=== PATIENT | female | born 1975 | race Caucasian/White ===

== ENCOUNTER 2020-09-18 14:36 | Outpatient (CLI) | payer OTHER, SELFPAY ==
--- NOTE | ~2020-09-18 | DEXA_ITS ---
Bone Density Report Name: Tawana Alvarenga Age: 45 Sex: Female Ethnicity: White Date of : 1975 Indication: postmenopausal; Referring Provider: Bess Pope Study: Bone densitometry was performed. Exam Date: September 18, 2020 Accession number: [id number] Bone Density: Region BMD T-score Z-score Classification AP Spine (L1-L4) 0.774 -2.5 -2.0 Osteoporosis Femoral Neck (Left) 0.826 -0.2 0.3 Normal Total Hip (Left) 0.881 -0.5 -0.2 Normal Total Hip Bilateral Avg 0.911 -0.3 0.1 Normal Femoral Neck (Right) 0.773 -0.7 -0.2 Normal Total Hip (Right) 0.940 0.0 0.3 Normal World Health Organization criteria for BMD impression classify patients as: Normal (T-score at or above -1.0), Osteopenia (T-score between -1.0 and -2.5), or Osteoporosis (T-score at or below -2.5). 10-year Fracture Risk: FRAX not reported because: Some T-score for Spine Total or Hip Total or Femoral Neck at or below -2.5 Clinical Information Provided by Patient: Patient maximum height was 67 Menopause Age: 39 No regular weight bearing exercise Drinks caffeinated beverages Onset of menses at age 11 Number of children 2 Impression: The patient has osteoporosis, based on the Total Spine T-score. Discussion: HIGH RISK OF FRACTURE. BONE DENSITY IS UNDESIRABLY LOW AT ONE OR MORE SKELETAL SITES, CONSISTENT WITH OSTEOPOROSIS. ALSO, BONE DENSITY IS LOWER THAN EXPECTED FOR AGE AND SEX AT ONE OR MORE SKELETAL SITES; RECOMMEND A DILIGENT SEARCH FOR SECONDARY CAUSES OF BONE LOSS. This patient's lowest T-score meets the World Health Organization's (WHO) criteria for osteoporosis at one or more sites (T-score -2.5 or below). In untreated patients, the risk of osteoporotic fracture increases approximately two-fold for each 1.0 SD decrease in T-score. Low bone density is not the only risk factor for fracture; also consider factors such as patient's age, frailty or poor health, risk of falling, risk of injury, previous osteoporotic fracture, family history of osteoporosis, cigarette smoking, low body weight, etc. Not everyone with low bone mineral density has osteoporosis; osteomalacia and other metabolic bone disorders should also be considered. Patients who have osteoporosis should be evaluated for specific diseases and conditions (secondary causes) that may cause or contribute to bone loss. The [place] Association of Clinical Endocrinologists (AACE) and National Osteoporosis Foundation (NOF) recommend pharmacologic intervention for all postmenopausal women whose T-score is in this range. Also, this patient's bone mineral density is below the range considered normal for healthy age-, sex-, and race-matched controls at least one site (Z-score -2.0 or below). This warrants careful evaluation for diseases and conditions that may contribute to accelerated bone
--- NOTE | ~2020-09-18 | MM_ITS ---
EXAMINATION: MM screening [place] [facility] w lewis HISTORY: Screening mammogram TECHNIQUE: Craniocaudal and mediolateral oblique 3-D tomosynthesis images were obtained and synthetic 2-D images were generated. CAD analysis was submitted and interpreted. COMPARISON: 08/21/2015 bilateral digital screening mammogram 08/17/2014 bilateral diagnostic digital mammogram and bilateral breast ultrasound examination 08/17/2014 bilateral diagnostic digital mammogram 08/04/2014 bilateral digital screening mammogram BREAST PARENCHYMAL COMPOSITION: There are scattered areas of fibroglandular density. FINDINGS: There is no evidence of suspicious mass, calcification, or architectural distortion to sugg est malignancy in either breast. There has been no suspicious interval change. IMPRESSION: 1. No mammographic evidence of malignancy. 2. Recommend routine screening mammography in one year. BI-RADS Category 1: Negative Reviewed, dictated and finalized at location A. ING SPECIALIST
== END 2020-09-18 14:37 | disposition home or self-care (01) ==
PROVIDERS: Family Provider Registered Nurse
DX: Z12.31 Encounter for screening mammogram for malignant neoplasm of breast (principal); M81.0 Age-related osteoporosis without current pathological fracture
CPT/HCPCS: 77063; 77067; 77080

== ENCOUNTER 2021-12-02 08:46 | Outpatient (CLI) | payer OTHER, SELFPAY ==
--- NOTE | ~2021-12-02 | MM_ITS ---
EXAMINATION: MM screening [facility] BI w lewis HISTORY: Screening TECHNIQUE: Craniocaudal and mediolateral oblique 3-D tomosynthesis images were obtained and synthetic 2-D images were generated. CAD analysis was submitted and interpreted. COMPARISON: Comparison to multiple prior studies sequentially, with oldest reviewed study dated 12/2013. BREAST PARENCHYMAL COMPOSITION: There are scattered areas of fibroglandular density. FINDINGS: There is no evidence of suspicious mass, calcification, or architectural distortion to sugg est malignancy in either breast. There has been no suspicious interval change. IMPRESSION: 1. No mammographic evidence of malignancy. 2. Recommend routine screening mammography in one year. BI-RADS Category 1: Negative Reviewed, dictated and finalized at location A.
== END 2021-12-02 08:47 | disposition home or self-care (01) ==
LOC: ANHIMG 08:48
PROVIDERS: Visit Provider Internal Medicine
DX: Z12.31 Encounter for screening mammogram for malignant neoplasm of breast (principal)
CPT/HCPCS: 77063; 77067

== ENCOUNTER 2024-01-07 06:36 | Outpatient (CLI) | payer OTHER, SELFPAY ==
--- NOTE | ~2024-01-07 | CT_ITS ---
CT of the Abdomen and Pelvis: Indication: Epigastric pain Technique: 2.5 mm axial scans were obtained through the abdomen and pelvis following intravenous adm inistration of 100 cc of Omnipaque 350. Dose reduction technique was used on this scan by utilizing a utomated exposure control and iterative reconstruction technique. The dose-length product (DLP) was 1 176.69 mGy-cm. Findings: Scans through the lung bases are unremarkable. There is mild central intrahepatic biliary dilatation. Gallbladder is distended, with gallstone prese nt. Common bile duct is dilated to 9 mm, with abrupt tapering/cut off distally. No pancreatic ductal dilatation. No gallbladder wall thickening or pericholecystic inflammatory change. The spleen, pancre as, adrenals and kidneys are within normal limits. No evidence of aortic aneurysm. No lymphadenopat hy. No bowel obstruction or bowel wall thickening. There is no evidence to suggest acute appendicitis. Images through the pelvis were performed. Urinary bladder unremarkable. No adnexal mass. No ascites. Impression: Intrahepatic and extra hepatic biliary dilatation, as detailed above with associated distended gallbl adder. There is apparent abrupt cutoff/tapering of the distal common bile duct. Consider MRCP to bett er evaluate for common duct stone. Cholelithiasis. No CT evidence for acute cholecystitis. Reviewed, dictated and finalized at location . Impression: Intrahepatic and extra hepatic biliary dilatation, as detailed above with assoc iated distended gallbladder. There is apparent abrupt cutoff/tapering of the di stal common bile duct. Consider MRCP to better evaluate for common duct stone. Cholelithiasis. No CT evidence for acute cholecystitis.
[2024-01-07 07:06] LABS: Estimated Glomerular Filt Rate > 60
== END 2024-01-07 06:37 | disposition home or self-care (01) ==
LOC: ANHIMG 06:37
PROVIDERS: Visit Provider Nurse Practitioner Family
DX: R10.13 Epigastric pain (principal); K80.20 Calculus of gallbladder without cholecystitis without obstruction
CPT/HCPCS: 74177; Q9967

== ENCOUNTER 2024-02-17 06:45 | Outpatient (CLI) | payer OTHER, SELFPAY ==
--- NOTE | ~2024-02-17 | MR_ITS ---
EXAMINATION: MR MRCP wo/w con/w 3D wo ind DATE: 02/17/2024 07:47 INDICATION: Other specified diseases of biliary tract. Epigastric abdominal pain. Dilated common bile duct. TECHNIQUE: Magnetic resonance imaging (MRI) of the abdomen was performed without and with 20 mL Multi Jeyson intravenous contrast. Sequences included coronal T2-weighted FS FSE, coronal T2-weighted FSE, a xial T1-weighted LAVA, coronal FS FIESTA, axial dual-echo T1-weighted SPGR, coronal lava-FLEX, sagitt al T2-weighted FSE, axial T2-weighted FSE, and axial DWI. Thick-slab T2-weighted FSE images were obta ined for magnetic resonance cholangiopancreatography (MRCP). Maximum intensity projection 3-D reconst ructions of the volumetric data were created by the technologist. Postcontrast sequences included cor onal LAVA-flex and time course of axial T1-weighted LAVA. COMPARISON: CT abdomen and pelvis 01/07/2024 FINDINGS: ABDOMEN MRI: There is a small sliding hiatal hernia. There are surgical changes in the stomach. There is mild intrahepatic biliary duct dilatation. There is a gallstone in the gallbladder, which is dist ended. The spleen, pancreas, adrenal glands, and kidneys are normal. There are no dilated loops of bertha wel. There is no ascites. There are no pathologically enlarged lymph nodes. ABDOMEN MRCP: The common duct is dilated to 10 mm. There is a 3.1 x 1.1 cm stone in the common duct. IMPRESSION: 1. 3.1 x 1.1 cm stone in the common duct with intrahepatic and extrahepatic biliary duct dilatation a nd gallbladder distention. 2. Cholelithiasis. Reviewed, dictated and finalized at location A. IMPRESSION: 1. 3.1 x 1.1 cm stone in the common duct with intrahepatic and extrahepatic noa iary duct dilatation and gallbladder distention. 2. Cholelithiasis.
== END 2024-02-17 06:46 | disposition home or self-care (01) ==
LOC: ANHIMG 06:45
PROVIDERS: Visit Provider Nurse Practitioner Family
DX: K83.8 Other specified diseases of biliary tract (principal); R10.13 Epigastric pain
CPT/HCPCS: 74183; 76376; A9577

== ENCOUNTER 2025-02-10 14:23 | Outpatient (CLI) | payer OTHER, SELFPAY ==
--- NOTE | ~2025-02-10 | MM_ITS ---
EXAMINATION: MM screening [place] BI w lewis HISTORY: Screening TECHNIQUE: Craniocaudal and mediolateral oblique 3-D tomosynthesis images were obtained and synthetic 2-D images were generated. CAD analysis was submitted and interpreted. COMPARISON: Comparison to multiple prior studies sequentially, with oldest reviewed study dated 08/01. BREAST PARENCHYMAL COMPOSITION: Not dense: There are scattered areas of fibroglandular density. FINDINGS: There is no evidence of suspicious mass, calcification, or architectural distortion to sugg est malignancy in either breast. There has been no suspicious interval change. IMPRESSION: 1. No mammographic evidence of malignancy. 2. Recommend routine screening mammography in one year. BI-RADS Category 1: Negative Reviewed, dictated and finalized at location B.
--- OUTSIDE RECORDS SUMMARY | 2025-02-10 14:32 | XMS_ITS | Clinical Summary ---
Author Organization [facility] Care Team Providers Care Nuclear Physics Teacher Name Role Phone Unavailable Primary Care Provider Unavailabl e Social History Tobacco Use Types Packs/Day Years Used Date Smoking Tobacco: Never Assessed Comments Unknown Sex and Gender Information Value Date Recorded Sex Assigned at Not on file Legal Sex Female 9:16 AM CDT Gender Identity Not on file Sexual Orientation Not on file Plan of Treatment Health Maintenance Due Date Last Done Comments Hepatitis C Virus (HCV) Screening 1975 TdaP Immunization 1975 Hepatitis B Immunization (1 of 3 - 19+ 3-dose series) 1993 Pap Smear 1995 Cervical Cancer Screening (CCS) 2004 HPV/Cotest 2004 Discussion re Starting/Frequ ency of Mammograms 2014 Colonoscopy 2019 Colorectal Cancer Screening 2019 Cologuard 2024 Immunochemical Fecal Occult Blood 2024 Mammogram 2024 Pneumococcal Immunization (5 0+ years) (1 of 1 - PCV) 2024 Zoster Immunization (1 of 2) 2024 Influenza Immunization (#1) 2024 SARS-COV-2 Immunization ( - 2023- season) 2024 Respiratory Syncytial Virus (RSV) Immunization (Adult) (1 - 1-dose 75+ series) 2049 Meningococcal Immunization (ACWY) Aged Out No longer eligible based on patient's age to complete this topic Pneumococcal Immunization Combined Aged Out No longer eligible based on patient's age to complete this topic Rotavirus Immunization Aged Out No lo nger eligible based on patient's age to complete this topic
--- OUTSIDE RECORDS SUMMARY | 2025-02-10 14:32 | XMS_ITS | Clinical Summary ---
Author Organization [facility] Health Address [address] [place] [address] Care Team Providers Care Commonwealth Attorney Name Role Phone Unavailable Primary Care Provider Unavailabl e Allergies No known active allergies Medications biotin 2,500 mcg capsule 1 (one) time each day. Active buPROPion XL (WELLBUTRIN XL) 150 mg 24 hr tablet Take 150 mg by mouth 1 (one) time each day. 1 Active calcium carbonate (TUMS) 200 mg calcium (500 mg) chewable tablet Chew 4 tablets. Active cetirizine (ZyrTEC) 10 mg capsule Take 10 mg by mouth 1 (one) time each day if needed. Active dicyclomine (BENTYL) 10 mg capsule Take 10 mg by mouth. 1 Active ketoconazole (NIZORAL) 2 % shampoo Apply topically per week. 0 Active metFORMIN XR (GLUCOPHATE-XR) 500 mg 24 hr tablet TAKE 2 TABLETS DAILY WITH BREAKFAST 0 Active pantoprazole (PROTONIX) 40 mg EC tablet Take 40 mg by mouth 1 (one) time each day. 1 Active phentermine (ADIPEX-P) 37.5 mg tablet Take 37.5 mg by mouth. 1 Active amoxicillin-pot clavulanate (AUGMENTIN) 875-125 mg tablet Take 1 tablet by mouth 2 (two) times a day. 20 tablet 1 Active methylPREDNISolo ne (MEDROL DOSPAK) 4 mg tablet Take by mouth. 1 Active semaglutide 1 mg/dose (4 mg/3 mL) pen injector Inject 1 mg under the skin per week. 1 Active Active Problems Problem Noted Date Diagnosed Date Epigastric pain 11/16/2020 Overview (04/01/2021): Last Assessment & Plan: Will check amylase/lipase as a precaution Hypersomnia with sleep apnea 10/24/2020 Class 1 obesity due to exces s calories without serious comorbidity with body mass index (BMI) of 34.0 to 34.9 in adult 10/24/2020 JOVON on CPAP 10/24/2020 Age-related osteoporosis wit hout current pathological fracture 09/21/2020 Screening for condition 08/07/2020 Overview (04/01/2021): 08/03/2020: PAP NILM, HPV neg, GC/CT/TV neg --> 202209/19/2020: MMG BIRADS-1 09/18/2020: DEXA -2.5 Premature ovarian failure 08/03/2020 Gastroesophageal reflux disease without esophagi tis 06/04/2020 Prediabetes 01/10/2020 Overview (07/02/2021): Last Assessment & Plan: Reviewed labs. Continue low-carb (<150 g/day), low-glycemic diet. Continue semaglutide. Last Assessment & Plan: Continue low-carb (<150 g/day), low-glycemic diet. Continue metformin -- will change to ER formulation to improve compliance. Discussed options and will add GLP-1 analog. Discussed risks, benefits, alternatives, potential side effects. No personal or family history of MTC or MEN2. Reviewed dosing/titration; reviewed appropriate storage. Referred to websites for additional instructions/info/video. Start Ozempic. Last Assessment & Plan: Reviewed interim labs. Continue low-carb (<150 g/day), low-glycemic diet. Resume semaglutide. Hold medication and call if any abdominal pain, N/V. Dysphagia 11/14/2019 Overview (04/01/2021): Added automatically from request for surgery [id number] Last Assessment & Plan: F/U with surgery re possible esophagram/EGD. Vomiting without nausea 11/14/2019 Overview (04/01/2021): Added automatically from request for surgery [id number] Elevated transaminase level 06/15/2018 Overview (04/01/2021): Last Assessment & Plan: Repeat levels improved but remain elevated. Will check RUQ U/S. History of obstructive sleep apnea 06/15/2018 Overview (04/01/2021): Last Assessment & Plan: Discussed comorbidities associated with sleep apnea, including effects on weight, and stressed importance of adequate treatment if present. Consider repeat sleep study. Metabolic and nutritional disorder 06/15/2018 Overview (04/01/2021): Last Assessment & Plan: Reviewed recent labs and discussed A1c 5.9 c/w prediabetes. Discussed insulin resistance including effect on weight and risk for progression to diabetes. Recommended low-carb, low-glycemic diet; choose whole grains and avoid more highly processed carbohydrates. Discussed potential benefits of this w/r/t gut microbiome. Referred to ADA and [facility] websites for additional information on topics including glycemic index/carbohydrate choices, protein sources. Start Metformin 500mg -- take daily for the 1st week, then increase to BID if tolerating. Discussed rationale in setting of insulin resistance. Discussed risks, benefits, alternatives, and potential side effects. Consider GLP-1 RA. Vitamin D deficiency 06/15/2018 Overview (04/01/2021): Last Assessment & Plan: Start 50,000 IU weekly supplement. Last Assessment & Plan: Start 50,000 IU weekly supplement. Weight loss counseling, encounter for 06/15/2018 Overview (07/02/2021): Last Assessment & Plan: Recalculated and reviewed calorie restriction based on BMR as previously detailed. Reviewed recommendation/goal of >/= 150 minutes/week moderate-intensity aerobic exercise. Asked to keep detailed food diary for at least 1 week and bring to next visit and/or continue tracking on phone. Last Assessment & Plan: Reviewed calorie restriction based on BMR as previously detailed. Reviewed recommendation/goal of >/= 150 minutes/week moderate-intensity aerobic exercise. Asked to keep detailed food diary for at least 1 week and bring to next visit and/or continue tracking on phone. History of bariatric surgery 11/30/2015 Overview (04/01/2021): Last Assessment & Plan: Reviewed recent notes/labs. Last Assessment & Plan: Reviewed recent notes/labs. Malabsorption 11/30/2015 Overview (04/01/2021): Last Assessment & Plan: Reviewed labs from bariatric surgery. Continue iron supplementation. Class 3 severe obesity due t o excess calories without serious comorbidity in adult 11/30/2015 Overview (07/02/2021): S/P RYGB Last Assessment & Plan: Obesity is improving with treatment. Diet interventions: as noted. Regular aerobic exercise program discussed. Pharmacotherapy as ordered. S/P RYGB Last Assessment & Plan: Obesity is unchanged. Diet interventions: as noted. Regular aerobic exercise program discussed. Pharmacotherapy as ordered. Continue phentermine. No diagnosis on [place] 12/14/2012 Morbid obesity 09/16/2012 Immunizations Immunization Administration Dates Next Due COVID-19, mRNA, LNP-S, PF, 30 mcg/0.3 mL dose ,04/23/2021 Influenza, unspecified 05/21/2020 Tdap 02/27/2020 Social History Tobacco Use Types Packs/Day Years Used Date Smoking Tobacco: Never Smokeless Tobacco: Never Alcohol Use Standard Drinks/Week Comments Never 0 (1 standard drink = 0.6 oz pur e alcohol) Comments Unknown Sex and Gender Information Value Date Recorded Sex Assigned at Not on file Legal Sex Female 9:01 PM PDT Gender Identity Not on file Sexual Orientation Not on file Last Filed Vital Signs Vital Sign Reading Time Taken Comments Blood Pressure 126/73 04/01/2021 2:09 PM CDT Pulse - - Temperature - - Respiratory Rate - - Oxygen Saturation - - Inhaled Oxygen Concentration - - Weight - - Height - - Body Mass Index - - Plan of Treatment Health Maintenance Due Date Last Done Comments Dental X-Ray: Bitewings 12/13/2020 06/13/2020 Dental Oral Exam 12/31/2021 07/02/2021, 06/13/2020 Dental Prophylaxis 12/31/2021 07/02/2021, 06/13/2020 Dental X-Ray: Full Mouth 01/22/2024 01/20/2021, 05/31 Dental X-Ray: Panoramic 01/22/2024 01/20/2021, 06/13 Meningococcal B Vaccine Aged Out No l onger eligible based on patient's age to complete this topic Procedures Procedure Name Priority Date/Time Associated Diagnosis Comments PROPHYLAXIS - ADULT Routine 07/02/2021 1 :00 PM CDT PERIODIC ORAL EVALUATION - ESTABLISHED PATIENT Routine 07/02/2021 1:00 PM CDT PANORAMIC RADIOGRAPHIC IMAGE Routine 06/13/2020 2:00 AM CDT INTRAORAL - COMPREHENSIVE SERIES OF RADIOGRAPHIC IMAGES Routine 06/13/2020 2:00 AM CDT from Last 3 Months or Most Recently Relevant to Health Maintenance Insurance [facility] PPO
--- OUTSIDE RECORDS SUMMARY | 2025-02-10 14:32 | XMS_ITS | Encounter Summary ---
Author Organization [facility] Health Address [address] [place] [address] Care Team Providers Care Economic Developer Name Role Phone Unavailable Primary Care Provider Unavailabl e Prior Encounters Date Type Department Care Team Description 07/02/2021 Travel 07/02/2021 1:00 PM CDT Office Visit [facility] [address] [place] [address] Tiana Canales RDH 07/02/2021 1:00 PM CDT Office Visit [facility] [address] [place] [address] Rocio Sandoval, DMD 04/05/2021 Travel 04/05/2021 8:00 AM CDT Office Visit [facility] [address] [place] [address] Rocio Sandoval, DMD 04/03/2021 Orders Only [facility] [address] [place] [address] Rocio Sandoval, DMD 04/01/2021 Travel 04/01/2021 2:00 PM CDT Office Visit [facility] [address] [place] [address] Rocio Sandoval, DMD 09/19/2019 Converted CPS Chart Documents [facility] [address] [place] [phone] <No scans attached> 09/19/2019 Converted 13x Documents [facility] [address] [place] [phone] <No scans attached> Last Filed Vital Signs Vital Sign Reading Time Taken Comments Blood Pressure 126/73 04/01/2021 2:09 PM CDT Pulse - - Temperature - - Respiratory Rate - - Oxygen Saturation - - Inhaled Oxygen Concentration - - Weight - - Height - - Body Mass Index - - Plan of Treatment Not on file Procedures Procedure Name Priority Date/Time Associated Diagnosis Comments ORAL HYGIENE INSTRUCTIONS Routine 2020 1:00 PM CDT TOPICAL APPLICATION OF FLUORIDE VARNISH Routine 07/02/2021 1:00 PM CDT PROPHYLAXIS - ADULT Routine 07/02/2021 1 :00 PM CDT PERIODIC ORAL EVALUATION - ESTABLISHED PATIENT Routine 07/02/2021 1:00 PM CDT BITEWING - SINGLE RADIOGRAPHIC IMAGE Routine 04/05/2021 8:00 AM CDT ADDITIONAL X-RAY Routine 04/05/2021 8:00 AM CDT SINGLE X-RAY Routine 04/05/2021 8:00 AM CDT LIMITED ORAL EVALUATION - PROBLEM FOCUSED Routine 04/05/2021 8:00 AM CDT 9 CORE BUILDUP, INCLUDING ANY PINS WHEN REQUIRED Routine 04/01/2021 2:00 PM CDT 9 CEREC CROWN ANT Routine 04/01/2021 2:0 0 PM CDT 8 CEREC CROWN ANT Routine 04/01/2021 2:0 0 PM CDT BITEWING - SINGLE RADIOGRAPHIC IMAGE Routine 04/01/2021 2:00 PM CDT ADDITIONAL X-RAY Routine 04/01/2021 2:00 PM CDT SINGLE X-RAY Routine 04/01/2021 2:00 PM CDT LIMITED ORAL EVALUATION - PROBLEM FOCUSED Routine 04/01/2021 2:00 PM CDT 13 MOD AMALGAM 3 SURFACE Routine 020 2:00 AM CDT 30 RENUKA AMALGAM 2 SURFACE Routine 06/13/20 20 2:00 AM CDT 20 DO AMALGAM 2 SURFACE Routine 06/13/20 20 2:00 AM CDT 19 MO AMALGAM 2 SURFACE Routine 06/13/20 20 2:00 AM CDT 14 MO AMALGAM 2 SURFACE Routine 06/13/20 20 2:00 AM CDT 4 DO AMALGAM 2 SURFACE Routine 0 2:00 AM CDT 3 LO AMALGAM 2 SURFACE Routine 0 2:00 AM CDT 31 O AMALGAM 1 SURFACE Routine 0 2:00 AM CDT 29 O AMALGAM 1 SURFACE Routine 0 2:00 AM CDT 18 O AMALGAM 1 SURFACE Routine 0 2:00 AM CDT 17 O AMALGAM 1 SURFACE Routine 0 2:00 AM CDT 2 O AMALGAM 1 SURFACE Routine 06/13/2020 2:00 AM CDT 28 EXTRACTION, ERUPTED TOOTH OR EXPOSED ROOT (ELEVATION AND/OR FORCEPS REMOVAL) Routine 06/13/2020 2:00 AM CDT 21 EXTRACTION, ERUPTED TOOTH OR EXPOSED ROOT (ELEVATION AND/OR FORCEPS REMOVAL) Routine 06/13/2020 2:00 AM CDT 12 EXTRACTION, ERUPTED TOOTH OR EXPOSED ROOT (ELEVATION AND/OR FORCEPS REMOVAL) Routine 06/13/2020 2:00 AM CDT 5 EXTRACTION, ERUPTED TOOTH OR EXPOSED ROOT (ELEVATION AND/OR FORCEPS REMOVAL) Routine 06/13/2020 2:00 AM CDT 32 EXTRACTION, ERUPTED TOOTH OR EXPOSED ROOT (ELEVATION AND/OR FORCEPS REMOVAL) Routine 06/13/2020 2:00 AM CDT COMPREHENSIVE ORAL EVALUATION - NEW OR ESTABLISHED PATIENT Routine 06/13/2020 2:00 AM CDT ORAL HYGIENE INSTRUCTIONS Routine 2019 2:00 AM CDT TOPICAL APPLICATION OF FLUORIDE VARNISH Routine 06/13/2020 2:00 AM CDT PROPHYLAXIS - ADULT Routine 06/13/2020 2 :00 AM CDT PANORAMIC RADIOGRAPHIC IMAGE Routine 06/13/2020 2:00 AM CDT INTRAORAL - COMPREHENSIVE SERIES OF RADIOGRAPHIC IMAGES Routine 06/13/2020 2:00 AM CDT INTRAORAL PHOTO Routine 06/13/2020 2:00 AM CDT INTRAORAL PHOTO Routine 06/13/2020 2:00 AM CDT INTRAORAL PHOTO Routine 06/13/2020 2:00 AM CDT INTRAORAL PHOTO Routine 06/13/2020 2:00 AM CDT 1 O COMPOSITE FILLING Routine 06/13/2020 2:00 AM CDT 9 ML COMPOSITE FILLING Routine 0 2:00 AM CDT 8 ML COMPOSITE FILLING Routine 0 2:00 AM CDT 27 F COMPOSITE FILLING Routine 0 2:00 AM CDT Visit Diagnoses Not on file Insurance [facility] PPO
--- OUTSIDE RECORDS SUMMARY | 2025-02-10 14:32 | XMS_ITS | Encounter Summary ---
Author Organization [facility] Address [address] [place] [address] Care Team Providers Care Radioisotope Technician Name Role Phone Kajal Kessler MD Primary Care Provider [phone] Rashmi Sosa MD Unavailable [phone] Fortino Frias MD Unavailable + Iban Nielsen APRN-AUTOMATIC PAINT SPRAYER OPERATOR Unavailable [phone] Robert Ware MD Unavailable [phone] Encounter Details Date Type Department Care Team (Late st Contact Info) Description 09/15/2022 [facility] Outpatient Visit [facility] - Family Medicine [address] [place] [id number] Kajal Kessler MD [address] [place], [place] [id number] Social History Tobacco Use Types Packs/Day Years Used Date Smoking Tobacco: Never Smokeless Tobacco: Never Alcohol Use Standard Drinks/Week Comments Never 0 (1 standard drink = 0.6 oz pur e alcohol) AUDIT-C Answer Date Recorded Q1: How often do you have a drink containing alc ohol? Never 02/27/2020 Average Number of Drinks Not on file 020 Frequency of Binge Drinking Not on file 01/30 PHQ-2 Answer Date Recorded PHQ2 TOTAL SCORE 0 09/12/2022 Comments No Sex and Gender Information Value Date Recorded Sex Assigned at Female 09/19/2020 10:34 PM SOLDERER FURNACE Legal Sex Female 11:55 AM CDT Gender Identity Female 09/19/2020 10:34 PM SOLDERER FURNACE Sexual Orientation Not on file documented as of this encounter Functional Status * Is person deaf or have serious hearing difficulty? Answer Date of Assessment Author No 11/09/2020 11:13 AM Víctor Benson RN * Is person blind or have serious difficulty seeing? Answer Date of Assessment Author No 11/09/2020 11:13 AM Víctor Benson RN * Does person have serious difficulty walking/climbing stairs? Answer Date of Assessment Author No 11/09/2020 11:13 AM Víctor Benson RN * Does person have difficulty dressing/bathing? Answer Date of Assessment Author No 11/09/2020 11:13 AM Víctor Benson RN * Does person have difficulty doing errands alone? Answer Date of Assessment Author No 11/09/2020 11:13 AM Víctor Benson RN documented as of this encounter Mental Status * Does person have difficulty concentrating/remembering/making decisions? Answer Entry Date Author No 11/09/2020 11:13 AM Víctor Benson RN documented in this encounter Plan of Treatment Upcoming Encounters Date Type Department Care Team (Late st Contact Info) Description 08/10/2025 9:45 AM SOLDERER FURNACE Office Visit [facility] - Family Medicine [address] [place] [address] Kajal Kessler MD [address] [place] [address] documented as of this encounter Visit Diagnoses Not on filedocumented in this encounter Additional Health Concerns Infection Onset Date Last Indicated Resolved Time COVID-19 Under Investigation 04/20/2023 04/20/2023 04/20/2023 2:17 PM CDT COVID-19 Confirmed 04/20/2023 04/20/2023 4:33 AM CDT documented as of this encounter Care Teams Radioisotope Technician Relationship Specialty Start Date End Date Kajal Kessler MD [address] [place] [address] PCP - General Internal Medicine 02/27/20 Rashmi Sosa MD [address] [address] Internal Medicine 02/27/20 Fortino Frias MD [address] [place] [address] Gastroenterology 02/27/20 06/21/23 Iban Nielsen APRN-SHANTA [address] [place] [address] Nurse Practitioner 02/27/20 06/21/23 Robert Ware MD [address] [facility] [address] [place], [place] [id number] Hospitalist 12/30/23 documented as of this encounter
--- OUTSIDE RECORDS SUMMARY | 2025-02-10 14:32 | XMS_ITS | Encounter Summary ---
Author Organization [facility] Address [address] [place] [address] Care Team Providers Care Automation Machine Operator Name Role Phone Kajal Kessler MD Primary Care Provider [phone] Rashmi Sosa MD Unavailable [phone] Robert Ware MD Unavailable [phone] Reason for Visit * Reason Onset Date Comments Order 02/09/2025 Encounter Details Date Type Department Care Team (Late st Contact Info) Description 02/09/2025 Telephone [facility] - Family Medicine [address] [place] [address] Kajal Kessler MD [address] [place] [phone] Order Social History Tobacco Use Types Packs/Day Years [...] on file 01/30 PHQ-2 Answer Date Recorded Patient Health Questionnaire-2 Score 0 02/03/2025 Comments No Sex and Gender Information Value Date Recorded Sex Assigned at Female 09/19/2020 10:34 PM ECONOMICS TEACHER Legal Sex Female 11:55 AM CDT Gender Identity Female 09/19/2020 10:34 PM ECONOMICS TEACHER Sexual Orientation Not on file documented as [...] Víctor Benson RN documented in this encounter Miscellaneous Notes * Telephone Encounter - Vilma Watts LPN - 02/09/2025 9:46 AM CDT Called and spoke with Vidhi. Informed her that patient does not need bone scan as it was on 07/26/24. Vidhi stated she did receive the order for the mammogram. She will let patient know that she does not need bone scan until 2025. * Telephone Encounter - Kajal Kessler MD - 02/09/2025 9:34 AM CDT No, bone scan recommended every 2 years. * Telephone Encounter - Vilma Watts LPN - 02/09/2025 9:20 AM CDT Had bone density on 07/26/24. Is she needing another test done for this. Has an order for mammogramin from Jennifer from 02/03/25. I will fax once hear if you are wanting a repeat bone density. Please advise * Telephone Encounter - Haven Foss - 02/09/2025 9:09 AM CDT Vidhi from [facility] calling and states they are needing orders for a Bone Density and Mammogram. Vidhi states patient is scheduled for tomorrow 02/10 @ 2:30. . PIPE 02/03/25 Jennifer documented in this encounter Plan of Treatment Upcoming Encounters Date Type Department Care Team (Late st Contact Info) Description 08/10/2025 9:45 AM ECONOMICS TEACHER Office Visit [facility] - Family Medicine [address] [place] [address] Kajal Kessler MD [address] [place] [address] documented as of this encounter Visit Diagnoses Not on filedocumented in this encounter Care Teams Automation Machine Operator Relationship Specialty Start Date End Date Kajal Kessler MD [address] [place] [address] PCP - General Internal Medicine 02/27/20 Rashmi Sosa MD [address] [facility] [address] [place] [address] Internal Medicine 02/27/20 Robert Ware MD [address] [facility] [address] [place] [address] Hospitalist 12/30/23 documented as of this encounter
--- OUTSIDE RECORDS SUMMARY | 2025-02-10 14:32 | XMS_ITS | Data Portability ---
Author Organization [facility] Address [address] [place] [phone] Assessment No assessment recorded. Plan of Treatment Reminders Order Date Submit Date Provider Last Modified By Organization Details Last Modified Time Details Appointments None recorded. Lab None recorded. Referral None recorded. Procedures None recorded. Surgeries None recorded. Imaging None recorded. Medication Orders triamcinol one acetonide 0.1 % topical cream 2018 [employer], [address] [place] [address], [id number], 9 17:05:44 Medrol (Mario Alberto) 4 mg tablets in a dose pack 2018 019 [employer], [address] [place] [address], [id number], 9 17:05:42 Patient TargetsNo targets recorded. Patient InstructionsNo instructions recorded. Reason for Referral None Reported. Medical Equipment None Reported. Allergies No known drug allergies Medications Name Sig Start Date Stop Date Status Note LastModified by Organization Details LastModified Time Medrol (Amrio Alberto) 4 mg tablets in a dose pack Take 1 dose pk every day by oral route for 6 days. 2018 active Not Available Not Available Not Avai lable triamcinolone acetonide 0.1 % topical cream APPLY A THIN LAYER TO THE AFFECTED AREA(S) BY TOPICAL ROUTE 2 TIMES PER DAY 2018 active Not Available Not Available Not Avai lable Vitals None Recorded Social History Question Answer Notes LastModified by Organizat ion Details LastModified Time Tobacco Smoking Status Never Smoker Shaina rowley [facility] 03/08/2019 16:26:33 What Was The Date Of Your Most Recent Tobacco Screening? 03/08/2019 Information n ot available 03/24/2019 Sex: Unknown Functional Status None recorded. Mental Status None recorded. Family History Nothing Reported. Medical History No medical history recorded. Gynecological HistoryNo gynecological history recorded. Obstetrics History GPAL:G 0 P 0 0 0 0 Past Encounters Encounter ID Performer Location Encounter Start Date Encounter Closed Date Diagnosis/Indication Diagnosis SNOMED-CT Code Diagnosis ICD10 Code Diagnosis Note [id number] ARNOLD Fan [facility] [address] [facility] [address] [place] [address] 03/08/2019 16:15:58 03/09/2019 09:38:58 Contact dermatitis caused by urushiol from [place] poison ritesh 860982089 L25.5 hydration, rest and antihistam ine encouraged . zyrtec samples given; as pt reports taking benadryl otc with little relief q4h and has been moderately drowsy. celestone im given per myself. pt to fu c pcp within 2 weeks. report to ed if s/s worsen. Health Concerns Section Related Observation LastModified by Organization Detai ls LastModified Time None Recorded Concern Status LastModified by Organization Details LastModified Time None Recorded Advance Directives Directive None Recorded Payers Insurance Date Sequence Insurance Name Policy Number Policy Spence Covered Member ID Spence Member ID Guarantor Name 03/08/2019 SLIDING FEE SCHEDULE - DISCOUNT Tawana Colette 03/08/2019 1 *SELF PAY* Ci ndy Colette Notes Date Note Type Note Provider Name and Address Organization Details Recorded Time 03/08/2019 text/html Pt presents to clinic with c/o pruritic rash to generalized body that began 4 days ago after being exposed to poison ritesh. She reports trialing benadryl q4h with little relief. Pt denies nausea, vomiting, fever, chills, rash, diarrhea, constipation and dysuria. ARNOLD Fan Attn: Accounting,[address] [facility], [place], [address], [facility] 03/08/2019 17:14:54 OBGyn Episode No OBEpisode recorded.
--- OUTSIDE RECORDS SUMMARY | 2025-02-10 14:32 | XMS_ITS | Encounter Summary ---
Author Organization [facility] Address [address] [place] [address] Care Team Providers Care Steel Barrel Reamer Name Role Phone Kajal Kessler MD Primary Care Provider [phone] Rashmi Sosa MD Unavailable [phone] Robert Ware MD Unavailable [phone] Encounter Details Date Type Department Care Team (Late st Contact Info) Description 02/06/2025 Results Follow-Up [facility] - Family Medicine [address] [place] [phone] Jennifer Tyson, SENIOR ANALYST DEVELOPER-SPACE SCIENCES DIRECTOR [address] [place] [phone] Social History Tobacco Use Types Packs/Day Years [...] Sex Assigned at Female 09/19/2020 10:34 PM HOME SPECIALIST Legal Sex Female 11:55 AM CDT Gender Identity Female 09/19/2020 10:34 PM HOME SPECIALIST Sexual Orientation Not on file documented as [...] st Contact Info) Description 08/10/2025 9:45 AM HOME SPECIALIST Office Visit [facility] - Family Medicine [address] [place] [address] Kajal Kessler MD [address] [place] [address] documented as of this encounter Visit Diagnoses Not on filedocumented in this encounter Care Teams Steel Barrel Reamer Relationship Specialty Start Date End Date Kajal Kessler MD [address] [place] [address] PCP - General Internal Medicine 02/27/20 Rashmi Sosa MD [address] [address] Internal Medicine 02/27/20 Robert Ware MD [address] [facility] [address] [place] [address] Hospitalist 12/30/23 documented as of this encounter
--- OUTSIDE RECORDS SUMMARY | 2025-02-10 14:32 | XMS_ITS | Clinical Summary ---
Author Organization [facility] Address [address] [place] [address] Care Team Providers Care Thermal Intelligence Analyst Name Role Phone Kajal Kessler MD Primary Care Provider [phone] Rashmi Sosa MD Unavailable [phone] Robert Ware MD Unavailable [phone] Source Comments [facility],non-owned Affiliates and Associated Physician Practices is amultiple site organization consisting of ambulatory clinics and hospital sitesin [place], [place], [place] and [place]. This disclosure is being madepursuant to the Care Everywhere program and may not contain all information available regarding this patient. Last updated 18.[facility] Allergies No known active allergies Medications * Be aware that medications may not be up to date on this document. Alwaysverify current medications with the patient. cetirizine (ZYRTEC ALLERGY) 10 MG gel capsule Take 1 (one) capsule by mouth once daily as needed Active calcium carbonate (TUMS) 500 MG chew tablet Take 4 (four) tablets by mouth as needed for Heartburn Active Simethicone (GAS-X PO) Take 1 tablet by mouth once daily Active vitamin D, ergocalciferol, (Drisdol) 1.25 MG (90508 UT) capsule TAKE 1 CAPSULE EVERY 7 DAYS 12 capsule 3 05/23/20 24 Active iron polysaccharides (Niferex 150) 150 MG capsuleIndications :Iron Deficiency Anemia Take 1 (one) capsule by mouth once daily Reasons: Anemia From Inadequate Iron in the Body 90 capsule 11/15/20 24 Active alendronate (Fosamax) 70 MG tablet Take 1 (one) tablet by mouth every 7 days before meal Take in morning with full glass of water on empty stomach and remain upright for 30 min 12 tablet 4 08/01/20 24 Active lansoprazole (Prevacid) 30 MG capsule Take 1 (one) capsule by mouth once daily 90 capsule 4 08/09/20 24 Active Zepbound 5 MG/0.5ML injection Inject 5 (five) mg subcutaneously Active benzonatate (Tessalon) 100 MG capsuleIndications :Acute non-recurrent frontal sinusitis Take 1 (one) capsule by mouth 3 times daily 60 capsule 11/23/19 25 Active Additional Information Patient not taking.Reported on 02/03/2025 semaglutide (Wegovy) 2.4 MG/0.75ML pen Inject 2.4 mg subcutaneously every 7 days 2024 Disconti nued(Tx Complete ) Active Problems Problem Noted Date Diagnosed Date JOVON on CPAP 10/24/2020 Hypersomnia with sleep apnea 10/24/2020 Class 2 obesity due to exces s calories without serious comorbidity with body mass index (BMI) of 36.0 to 36.9 in adult 10/24/2020 Age-related osteoporosis wit hout current pathological fracture 09/21/2020 Screening for condition 08/07/2020 Overview (09/21/2020): 08/03/2020: PAP NILM, HPV neg, GC/CT/TV neg --> 202209/19/2020: MMG BIRADS-1 09/18/2020: DEXA -2.5 Premature ovarian failure 08/03/2020 Gastroesophageal reflux disease without esophagi tis 06/04/2020 Prediabetes 01/10/2020 Overview (02/27/2020): Last Assessment & Plan: Continue low-carb (<150 g/day), low-glycemic diet. Continue metformin -- will change to ER formulation to improve compliance. Discussed options and will add GLP-1 analog. Discussed risks, benefits, alternatives, potential side effects. No personal or family history of MTC or MEN2. Reviewed dosing/titration; reviewed appropriate storage. Referred to websites for additional instructions/info/video. Start Ozempic. Vitamin D deficiency 06/15/2018 Overview (02/27/2020): Last Assessment & Plan: Start 50,000 IU weekly supplement. History of bariatric surgery 11/30/2015 Overview (02/27/2020): Last Assessment & Plan: Reviewed recent notes/labs. Encounters Date Type Department Care Team Description 02/09/[address] [address] Kajal Kessler MD Order 02/06/2025 Results Follow-Up [address] [address] Jennifer Tyson APRN-CNP 02/03/2025 10:30 AM CDT Office Visit [address] [address] Jennifer Tyson APRN-CNP Routine physical examination (Primary Dx); Prediabetes; Age-related osteoporosis without current pathological fracture; Gastroesophageal reflux disease without esophagitis; Class 2 obesity due to excess calories without serious comorbidity with body mass index (BMI) of 38.0 to 38.9 in adult; Screening for endocrine disorder; Encounter for screening mammogram for malignant neoplasm of breast; Need for zoster vaccination 02/03/2025 Travel 11/22/2024 8:00 AM CDT Office Visit [address] [address] Jennifer Tyson APRN-CNP Acute non-recurrent frontal sinusitis (Primary Dx) 11/22/2024 Travel from Last 3 Months Immunizations Immunization Administration Dates Next Due Etogas primary monoval ent 12+ yr 0.3mL Purple cap 06/04/2021,04/23/2021 INFLUENZA VACCINE 05/21/2020 MMR VACCINE 05/07/2022,04/01/2022 TDAP (7yrs+) 02/27/2020 Zoster Hzv Vacc Recombinant Inj Im 02/03/2025 Family History Medical History Relation Name Comments Hypertension Maternal Grandmother Hypertension Mother Other Mother prediabetes Relation Name Status Comments Father Maternal Grandmother Mother Alive Social History Tobacco Use Types Packs/Day Years Used Date Smoking Tobacco: Never Smokeless Tobacco: Never Tobacco Cessation:Counseling Given: Not Answered Alcohol Use Standard Drinks/Week Comments Never 0 [...] Sex Assigned at Female 09/19/2020 10:34 PM INCLUSION PARAEDUCATOR Legal Sex Female 11:55 AM CDT Gender Identity Female 09/19/2020 10:34 PM INCLUSION PARAEDUCATOR Sexual Orientation Not on file Last Filed Vital Signs Vital Sign Reading Time Taken Comments Blood Pressure 114/62 02/03/2025 10:34 AM CDT Pulse 70 02/03/2025 10:34 AM CDT Temperature 36.7 C (98.1 F) 02/03/2025 10:34 AM CDT Respiratory Rate 20 12/30/2023 4:08 PM CDT Oxygen Saturation 98% 02/03/2025 10: 34 AM CDT Inhaled Oxygen Concentration - - Weight 110.9 kg (244 lb 6.4 oz) 025 10:34 AM CDT Height 170.2 cm (5' 7) 02/03/2025 10:3 4 AM CDT Body Mass Index 38.28 02/03/2025 10:34 AM CDT Plan of Treatment Upcoming Encounters Date Type Department Care Team (Late st Contact Info) Description 08/10/2025 9:45 AM INCLUSION PARAEDUCATOR Office Visit [facility] - Family Medicine [address] [place] [address] Kajal Kessler MD [address] [place] [address] Health Maintenance Due Date Last Done Comments COLOGUARD (AGES 45-75) - COLON CA SCREENING 1975 CT COLONOGRAPHY - COLON CA SCREENING 1975 FIT - COLON CA SCREENING 1975 FLEX SIG - COLON CA SCREENING 1975 MAMMOGRAM 09/18/2022 09/18/2020 PNEUMOCOCCAL VACCINE 50+ (1 of 1 - PCV) 2024 COVID-19 VACCINE (3 - season) 2024 06/04/2021, 04/23/2021 ZOSTER VACCINE (2 of 2) 03/31/2025 02/03/2025 INFLUENZA VACCINE (Season Ended) 2025 05/21/2020 PAP with HPV 08/03/2025 08/03/2020 SCREENING FOR DIABETES 02/04/2028 , 02/03/2025, 07/12/2024, Additional history exists LIPID TESTING 02/03/2030 02/03/2025, 05/0 05/2024, 09/12/2022, Additional history exists DTAP/TDAP/TD VACCINES (2 - Td or Tdap) 02/26/2030 02/27/2020 COLON MONITORING 11/05/2031 11/04/2021, 11/04/2021 COLONOSCOPY - COLON CA SCREENING 11/05/2031 11/04/2021, 11/04/2021 Colorectal Cancer Screening 11/05/2031 HEPATITIS C SCREENING Completed 09/21/2020 HIV SCREENING Completed 09/21/2020 DEPRESSION SCREENING Completed 11/22/2024, 12/30/2023, 09/12/2022, Additional history exists HEPATITIS B VACCINE Discontinued HIB VACCINE Aged Out No longer eligi ble based on patient's age to complete this topic HPV VACCINE Aged Out No longer eligi ble based on patient's age to complete this topic MENINGOCOCCAL (Group B) VACCINE SHARED DECISION-MAKING Aged Out No longer eligible based on patient's age to complete this topic MENINGOCOCCAL GROUPS A/C/Y/W VACCINE Aged Out No longer eligible based on patient's age to complete this topic Procedures Procedure Name Priority Date/Time Associated Diagnosis Comments HEMOGLOBIN A1C Routine 02/03/2025 11:22 AM CDT Prediabetes TSH HI LOW REFLEX FREE T4 Routine 02/03/2025 11:19 AM CDT Screening for endocrine disorder CBC W AUTO DIFFERENTIAL Routine 02/03/2025 11:19 AM CDT Routine physical examination COMPREHENSIVE METABOLIC PANEL Routine 02/03/2025 11:19 AM CDT Routine physical examination LIPID PROFILE Routine 02/03/2025 11:19 AM CDT Class 2 obesity due to excess calories without serious comorbidity with body mass index (BMI) of 38.0 to 38.9 in adult ENDOSCOPY, COLON, SCREENING Routine 11/04/2021 11:25 AM INCLUSION PARAEDUCATOR HEPATITIS C ANTIBODY Routine 09/21/2020 4:06 PM INCLUSION PARAEDUCATOR Encounter for hepatitis C screening test for low risk patient HIV-1 HIV-2 ANTIBODY + HIV P24 AG PANEL Routine 09/21/2020 4:06 PM INCLUSION PARAEDUCATOR Encounter for screening for HIV MAMMO BILAT SCREENING Routine 09/18/2020 Encounter for screening mammogram for malignant neoplasm of breast PAP IG CT+NG+TV+HPV HR Routine 08/03/2020 2:32 PM INCLUSION PARAEDUCATOR Well female exam with routine gynecological exam Exposure to sexually transmitted disease (STD) from Last 3 Months or Most Recently Relevant to Health Maintenance Results * HEMOGLOBIN A1C (02/03/2025 11:22 AM CDT) Hemoglobin A1c 5.6 <5.7 % [facility] INSURANCE BILL Comment: AVERAGE GLUCOSE MG/DL BLOOD 114 mg/dL HbA1c Interpretation: Normal: < 5.7% Pre-diabetes: 5.7-6.4% Diabetes: Equal to or greater than 6.5% Test results diagnostic of diabetes should be repeated for c onfirmation. Treatment target values recommended by ADA and other clinica l organizations should be used to evaluate metabolic control in patients. This test should not replace glucose testing for patients wi th Type 1 diabetes, pediatric patients, or women. Falsely low HbA1c results may be observed in patients with c linical conditions that shorten erythrocyte life span or dec rease mean erythrocyte age such as the presence of unstable hemoglobin variants, elevated hemoglobin F level or other ca uses of hemolytic anemia. HbA1c may not accurately reflect glycemic control when clinical conditions that affect erythr ocyte survival are present. Severe Iron deficiency anemia m ay yield falsely high results. Hemoglobin A1c assay should not be used to diagnose or monitor diabetes in patients with malignancy, recent blood transfusion, chronic kidney or derik er disease. This method may yield falsely low results when hemoglobin (HbF) exceeds 5% in the specimen. The [employer] Alinity assay for the measurement of HbA1c is a [facility] Glycohemoglobin Standardization Program (NGSP) certi fied method. Blood BLOOD SPECIMEN / Unknown 02/03/2025 11:22 AM CDT 02/03/2025 Narrative [facility] INSURANCE BILL - 02/03/2025 9:08 PM CDT Performed at: [address] [place] [address] [id number] Executive Vice President Business Development: T[address], Phone: [phone] us Jennifer Tyson APRN-CAN TOP SETTER LAB - CHEMISTRY ORDERABLES Final Result Performing Organization Address City/[facility]/ZIP Co de Phone Number [facility] INSURANCE BILL [address] [place] [address] * TSH HI LOW REFLEX FREE T4 (02/03/2025 11:19 AM CDT) [facility] TSH 1.100 0.350 - 4.940 uIU/mL [facility] INSURANCE BILL Blood BLOOD SPECIMEN / Unknown 02/03/2025 11:19 AM CDT 02/03/2025 Narrative [facility] INSURANCE BILL - 02/03/2025 9:08 PM CDT Performed at: [address] [place] [address] [id number] Executive Vice President Business Development: Tono [address]za [address], Phone: [phone] us Jennifer Tyson APRN-CAN TOP SETTER LAB - CHEMISTRY ORDERABLES Final Result Performing Organization Address City/[facility]/ZIP Co de Phone Number [facility] INSURANCE BILL [address] [place] [address] * (ABNORMAL) CBC WITH DIFFERENTIAL (02/03/2025 11:19 AM CDT) [facility] WBC 5.4 4.0 - 10.7 x10E9/L [facility] INSURANCE BILL RBC 4.95 3.90 - 5.20 x10E12/L [facility] INSURANCE BILL Hemoglobin 12.4 11.9 - 15.8 g/dL [facility] INSURANCE BILL Hematocrit 40.8 34.8 - 46.1 % [facility] INSURANCE BILL MCV 82.4 80.0 - 98.0 fL [facility] INSURANCE BILL MCH 25.1(L) 26.7 - 33.6 pg [facility] INSURANCE BILL MCHC 30.4(L) 31.7 - 36.3 g/dL [facility] INSURANCE BILL RDW 17.2(H) 11.3 - 14.8 % [facility] INSURANCE BILL Platelet Count 371 150 - 420 x10E9/L [facility] INSURANCE BILL Comment:MPV (CS) 10.3 fL 7.8 -11.4 Granulocytes % 45.2 41.0 - 74.0 % [facility] INSURANCE BILL Lymphocytes % 42.1 17.0 - 47.0 % [facility] INSURANCE BILL Monocytes % 8.4 3.0 - 11.0 % [facility] INSURANCE BILL Eosinophils % 3.2 0.0 - 7.0 % [facility] INSURANCE BILL Basophils % 0.9 0.0 - 1.6 % [facility] INSURANCE BILL Granulocytes Absolute 2.42 1.60 - 7.50 x10E9/L [facility] INSURANCE BILL Lymphocytes Absolute 2.25 1.00 - 4.40 x10E9/L [facility] INSURANCE BILL Monocytes Absolute 0.45 0.15 - 1.00 x10E9/L [facility] INSURANCE BILL Eosinophils Absolute 0.17 0.00 - 0.60 x10E9/L [facility] INSURANCE BILL Basophils Absolute 0.05 0.00 - 0.13 x10E9/L [facility] INSURANCE BILL Immature Granulocytes 0.2 0.0 - 1.0 % [facility] INSURANCE BILL Blood BLOOD SPECIMEN / Unknown 02/03/2025 11:19 AM CDT 02/03/2025 Narrative [facility] INSURANCE BILL - 02/03/2025 9:08 PM CDT Performed at: [address] [place] [address] [id number] Executive Vice President Business Development: Tono [address]za [address], Phone: [phone] us Jennifer Tyson APRN-CAN TOP SETTER LAB - HEMATOLOGY ORDERABLE S Final Result [facility] INSURANCE BILL [address] [place] [address] * COMPREHENSIVE METABOLIC PANEL (02/03/2025 11:19 AM CDT) [facility] Signature Glucose 89 70 - 99 mg/dL [facility] INSURANCE BILL BUN 15 7 - 26 mg/dL [facility] INSURANCE BILL Creatinine 0.76 0.57 - 1.11 mg/dL [facility] INSURANCE BILL eGFR by CKD-EPI >90 >=90 mL/min/1.7 3 m2 [facility] INSURANCE BILL Sodium 139 136 - 145 mmol/L [facility] INSURANCE BILL Potassium 4.5 3.5 - 5.1 mmol/L [facility] INSURANCE BILL Chloride 106 98 - 107 mmol/L [facility] INSURANCE BILL CO2 28 22 - 29 mmol/L [facility] INSURANCE BILL Calcium 9.2 8.4 - 10.4 mg/dL [facility] INSURANCE BILL Protein Total 6.9 6.4 - 8.3 gm/dL [facility] INSURANCE BILL Albumin 4.0 3.1 - 4.5 gm/dL [facility] INSURANCE BILL Bilirubin Total 0.9 0.2 - 1.2 mg/dL [facility] INSURANCE BILL Alkaline Phosphatase 108 40 - 150 U/L [facility] INSURANCE BILL AST 34 10 - 48 U/L [facility] INSURANCE BILL ALT 48 6 - 57 U/L [facility] INSURANCE BILL Blood BLOOD SPECIMEN / Unknown 02/03/2025 11:19 AM CDT 02/03/2025 Narrative [facility] INSURANCE BILL - 02/03/2025 9:08 PM CDT Performed at: [address] [place] [address] [id number] Executive Vice President Business Development: Tono Mirza [address], Phone: [phone] us Jennifer Tyson APRN-CAN TOP SETTER LAB - CHEMISTRY ORDERABLES Final Result [facility] INSURANCE BILL [address] [place] [address] * LIPID PROFILE (02/03/2025 11:19 AM CDT) Cholesterol 176 <200 mg/dL [facility] INSURANCE BILL Triglycerides 100 <150 mg/dL [facility] INSURANCE B[facility] HDL Cholesterol 55 >40 mg/dL [facility] INSURANCE BILL VLDL Calculated 20 <=30 mg/dL [facility] INSURANCE BILL LDL Calculated 101 <130 mg/dL [facility] INSURANCE BILL Blood BLOOD SPECIMEN / Unknown 02/03/2025 11:19 AM CDT 02/03/2025 Narrative [facility] INSURANCE BILL - 02/03/2025 9:08 PM CDT Performed at: [address] [place] [address] [id number] Executive Vice President Business Development: Tono Mirza [address], Phone: [phone] Jennifer Tyson NOISE TESTER-CAN TOP SETTER LAB - CHEMISTRY ORDERABLES Final Result Performing Organization Address City/State/[facility] Co de Phone Number [facility] INSURANCE BILL [address] [place] [address] * ENDOSCOPY, COLON, SCREENING (11/04/2021 11:25 AM INCLUSION PARAEDUCATOR) Report Endoscopy POC _ Patient Name: Tawana Alvarenga Procedure Date: 11/04/2021 11:25 AM Date of : 1975 Admit Type: Outpatient Age: 46 Room: ROOM 1 Gender: Female Attending MD: Dipak Hinton MD _ Procedure: Colonoscopy Indications: Screening for colorectal malignant neoplasm, This is the patient's first colonoscopy Providers: Dipak Hinton MD, Spring Cadena RN, Bolivar Esparza CRNA (Anesthesia Staff) Complications: No immediate complications. _ Estimated Blood Loss: Estimated blood loss: none. Procedure: Pre-Anesthesia Assessment: - Prior to the procedure, a History and Physical was performed, and patient medications and allergies were reviewed. The patient's tolerance of previous anesthesia was also reviewed. The risks and benefits of the procedure and the sedation options and risks were discussed with the patient. All questions were answered, and informed consent was obtained. Prior Anticoagulants: The patient has taken no previous anticoagulant or antiplatelet agents. ASA Grade Assessment: III - A patient with severe systemic disease. After reviewing the risks and benefits, the patient was deemed in satisfactory condition to undergo the procedure. After I obtained informed consent, the scope was passed under direct vision. Throughout the procedure, the patient's blood pressure, pulse, and oxygen saturations were monitored continuously. The [id number] SN [id number] was introduced through the anus and advanced to the terminal ileum. The terminal ileum, the appendiceal orifice and the rectum were photographed. The quality of the bowel preparation was good. Findings: The colon (entire examined portion) appeared normal. _ Impression: - The entire examined colon is normal. - No specimens collected. Recommendation: - High fiber diet. - Repeat colonoscopy in 10 years for screening purposes. - Continue present medications. - Patient has a contact number available for emergencies. The signs and symptoms of potential delayed complications were discussed with the patient. Return to normal activities tomorrow. Written discharge instructions were provided to the patient. Procedure Code(s): --- Professional --- G0121, Colorectal cancer screening; colonoscopy on individual not meeting criteria for high risk --- Technical --- G0121, Colorectal cancer screening; colonoscopy on individual not meeting criteria for high risk Diagnosis Code(s): --- Professional --- Z12.11, Encounter for screening for malignant neoplasm of colon --- Technical --- Z12.11, Encounter for screening for malignant neoplasm of colon CPT copyright 2019 [employer]. All rights reserved. The codes documented in this report are preliminary and upon hand leather trimmer review may be revised to meet current compliance requirements. ____ Dipak Hinton MD 11/04/2021 1:41:55 PM This report has been signed electronically. Number of Addenda: 0 Note Initiated On: 11/04/2021 11:25 AM [facility] ENDOSCOPY 11/04/2021 11:2 5 AM INCLUSION PARAEDUCATOR Dipak Hinton MD GI PROCEDURE ORDERABLES Edit ed Result - Final [facility] ENDOSCOPY * HIV-1 HIV-2 ANTIBODY + HIV P24 AG PANEL (09/21/2020 4:06 PM INCLUSION PARAEDUCATOR) HIV Screen 4th Generation w Reflex Non Reactive Non Reactive [facility] ACCOUNT BILL Blood BLOOD SPECIMEN / Unknown 09/21/2020 4:06 PM INCLUSION PARAEDUCATOR 09/21/2020 Narrative Resulting Agency Comment [facility]: [facility] [address] [id number] Kajal Kessler MD LAB - CHEMISTRY ORDERABLES Final Result [facility] ACCOUNT BILL [address] [place] [address] * HEPATITIS C ANTIBODY (09/21/2020 4:06 PM INCLUSION PARAEDUCATOR) Hepatitis C Antibody Non Reactive Non Reactive [facility] ACCOUNT BILL Comment: Non Reactive - Antibodies to Hepatitis C virus (HCV) were no t detected, result does not exclude early acute HCV infection. Non Reactive - Antibodies to Hepatitis C virus (HCV) were no t detected, result does not exclude early acute HCV infection. Blood BLOOD SPECIMEN / Unknown 09/21/2020 4:06 PM INCLUSION PARAEDUCATOR 09/21/2020 Narrative Resulting Agency Comment Lab Testing performed at: [facility] [address] [facility] [id number] Kajal Kessler MD LAB - CHEMISTRY ORDERABLES Final Result [facility] ACCOUNT BILL [address] [place] [address] * MAMMO BILAT SCREENING (09/18/2020) Anatomical Region Laterality Modality Breast Bilateral Mammography Bess Howe MD MAMMO ORDERABLES F inal Result * PAP IG CT+NG+TV+HPV HR (08/03/2020 2:32 PM INCLUSION PARAEDUCATOR) Diagnosis [facility] ACCOUNT BILL Comment:NEGATIVE FOR INTRAEP ITHELIAL LESION OR MALIGNANCY. Specimen Adequacy [facility] ACCOUNT BILL Comment: Satisfactory for evaluation. Endocervical and/or squamous metaplastic cells (endocervical component) are present. Clinician Provided ICD10 [facility] ACCOUNT BILL Comment: Z01.419 Z76.89 Z12.31 Z13.820 E28.39 Z20.2 Performed by [facility] ACCOUNT BILL Comment:Daniela Clark, Cytotec hnologist (ASCP) Comment . [facility] ACCOUNT BILL Note [facility] ACCOUNT BILL Comment: The Pap smear is a screening test designed to aid in the detection of premalignant and malignant conditions of the uterine cervix. It is not a diagnostic procedure and should not be used as the sole means of detecting cervical cancer. Both false-positive and false-negative reports do occur. . IGLBP CPT Code Automation [facility] ACCOUNT BILL Comment: This liquid based ThinPrep(R) pap test was screened with the use of an image guided system. Human papillomavirus Aptima Negative Negative [facility] ACCOUNT BILL Comment: This nucleic acid amplification test detects fourteen high-risk HPV types (16,18,31,33,35,39,45,51,52,56,58,59,66,68) without differentiation. Chlamydia trachomatis SHANON Negative Negative [facility] ACCOUNT BILL GC SHANON Negative Negative [facility] ACCOUNT BILL Trichomonas vaginalis by SHANON Negative Negative [facility] ACCOUNT BILL Pathology/Cytolog y PART OF UTERINE CERVIX / Unknown 08/03/2020 2:32 PM INCLUSION PARAEDUCATOR 08/03/2020 Narrative [facility] ACCOUNT BILL - 08/07/2020 8:07 AM INCLUSION PARAEDUCATOR No. of containers..01 ThinPrep Vial Resulting Agency Comment Lab Testing performed at: [address] [id number] Bess Howe MD LAB - PATHOLOGY/CY TOLOGY ORDERABLES Final Result [facility] ACCOUNT BILL [address] [place] [address] from Last 3 Months or Most Recently Relevant to Health Maintenance Insurance [facility] Care Teams Thermal Intelligence Analyst Relationship Specialty Start Date End Date Kajal Kessler MD [address] [facility] [address] PCP - General Internal Medicine 02/27/20 Rashmi Sosa MD [address] [address] Internal Medicine 02/27/20 Robert Ware MD [address] [place] [address] Hospitalist 12/30/23
--- OUTSIDE RECORDS SUMMARY | 2025-02-10 14:32 | XMS_ITS | Referral Summary ---
Author Organization [facility] Address [facility] [place] [address] Care Team Providers Care Community Resource Consultant Name Role Phone Kajal Kessler MD Primary Care Provider [phone] Allergies No known active allergies Medications biotin 2,500 mcg capsule daily. Active ferrous sulfate 325 mg (65 mg of elemental iron) tabletIndicatio ns:Iron Deficiency Anemia Take 1 tablet daily 2 hours before or 2 hours after taking Calcium. 12/04/2015 Active multivitamin tabletIndicatio ns:Vitamin Deficiency Prevention daily. 10/21/2013 Active ergocalciferol (VITAMIN D) 50,000 unit capsule Take 1 capsule (50,000 Units total) by mouth once a week 12 capsule 3 11/19/2021 Active cetirizine (ZyrTEC) 10 mg capsule Take 10 mg by mouth daily as needed Active RABEprazole DR (ACIPHEX) 20 mg EC tablet Take 1 tablet (20 mg total) by mouth 2 (two) times a day 12/29/2023 Active acetaminophen 500 mg capsule Take 2 capsules (1,000 mg total) by mouth every 6 (six) hours 03/16/2024 Active oxyCODONE (ROXICODONE) 5 mg immediate release tabletIndicatio ns:Pain Take 1 tablet (5 mg total) by mouth every 4 (four) hours as needed for pain 10 tablet 03/16/2024 Active docusate sodium (COLACE) 100 mg capsuleIndicati ons:constipatio n Take 1 capsule (100 mg total) by mouth 2 (two) times a day 30 capsule 03/16/2024 Active famotidine (PEPCID) 20 mg tablet Take 1 tablet (20 mg total) by mouth 2 (two) times a day Active tirzepatide, weight loss, (Zepbound) 2.5 mg/0.5 mL pen injectorIndicat ions:Weight Loss Management for Obese Patient (BMI >= 30) Inject 0.5 mL (2.5 mg total) under the skin every 7 days 2 mL 08/16/2024 Active tirzepatide, weight loss, (Zepbound) 5 mg/0.5 mL pen injectorIndicat ions:Class 3 obesity Inject 0.5 mL (5 mg total) under the skin every 7 days 6 mL 11/25/2024 Active Active Problems Problem Noted Date Diagnosed Date Common bile duct stone 03/23/2024 Calculus of gallbladder and bile duct w/o cholecystitis or obstruction 03/15/2024 Calculus of bile duct withou t cholecystitis and without obstruction 03/14/2024 Calculus of bile duct withou t cholangitis or cholecystitis without obstruction 02/25/2024 Epigastric pain 11/16/2020 Assessment & Plan (11/16/2020 4:20 PM CDT): Will check amylase/lipase as a precaution Prediabetes 01/10/2020 Assessment & Plan (01/20/2022 11:22 AM CDT): Reviewed interim labs. Continue low-carb (<150 g/day), low-glycemic diet. Will see if Ozempic 2 mg (or any dose) is covered through [facility] with current insurance. Will repeat labs before next visit. Assessment & Plan (10/02/2021 10:40 AM CHILD CARE CENTRE MANAGER): Labs. Continue low-carb (<150 g/day), low-glycemic diet. Continue semaglutide. Assessment & Plan (06/11/2021 3:04 PM CDT): Reviewed interim labs. Continue low-carb (<150 g/day), low-glycemic diet. Resume semaglutide. Hold medication and call if any abdominal pain, N/V. Assessment & Plan (11/16/2020 4:19 PM CDT): Reviewed labs. Continue low-carb (<150 g/day), low-glycemic diet. Continue semaglutide. Assessment & Plan (05/14/2020 9:20 AM CDT): Continue low-carb (<150 g/day), low-glycemic diet. Increase semaglutide to 1 mg pending labs. Assessment & Plan (01/10/2020 5:04 PM CDT): Continue low-carb (<150 g/day), low-glycemic diet. Continue metformin -- will change to ER formulation to improve compliance. Discussed options and will add GLP-1 analog. Discussed risks, benefits, alternatives, potential side effects. No personal or family history of MTC or MEN2. Reviewed dosing/titration; reviewed appropriate storage. Referred to websites for additional instructions/info/video. Start Ozempic. Dysphagia 11/14/2019 Overview (11/14/2019): Added automatically from request for surgery [id number] Assessment & Plan (11/20/2019 6:34 PM CDT): F/U with surgery re possible esophagram/EGD. Vomiting without nausea 11/14/2019 Overview (11/14/2019): Added automatically from request for surgery [id number] Metabolic and nutritional disorder 06/15/2018 Assessment & Plan (11/20/2019 6:36 PM CDT): Reviewed recent labs and discussed A1c 5.9 c/w prediabetes. Discussed insulin resistance including effect on weight and risk for progression to diabetes. Recommended low-carb, low-glycemic diet; choose whole grains and avoid more highly processed carbohydrates. Discussed potential benefits of this w/r/t gut microbiome. Referred to ADA and [facility] websites for additional information on topics including glycemic index/carbohydrate choices, protein sources. Start Metformin 500mg -- take daily for the 1st week, then increase to BID if tolerating. Discussed rationale in setting of insulin resistance. Discussed risks, benefits, alternatives, and potential side effects. Consider GLP-1 RA. Assessment & Plan (07/14/2018 11:19 AM CHILD CARE CENTRE MANAGER): Reviewed repeat labs. Continue low-carb (<150 g/day), low-glycemic diet. Avoid metformin at this time given elevated transaminases. Will add Trulicity. Discussed risks, benefits, alternatives, potential side effects. Reviewed appropriate administration using demo pen. Assessment & Plan (06/15/2018 9:56 AM CDT): Reviewed recent labs. Discussed A1c 5.7 c/w prediabetes. Discussed insulin resistance including affect on weight and risk for progression to diabetes. Recommended low-carb, low-glycemic diet; choose whole grains and avoid more highly processed carbohydrates. Discussed potential benefits of this w/r/t gut microbiome. Referred to ADA and [facility] websites for additional information on topics including glycemic index/carbohydrate choices, protein sources. Elevated transaminase level 06/15/2018 Assessment & Plan (07/14/2018 11:19 AM CHILD CARE CENTRE MANAGER): Repeat levels improved but remain elevated. Will check RUQ U/S. Assessment & Plan (06/15/2018 9:50 AM CDT): Repeat hepatic function panel. U/S if labs remain abnormal and she has not had in the past. Reviewed prior labs from -- neg. Hep C, hep B. Weight loss counseling, encounter for 06/15/2018 Assessment & Plan (01/20/2022 11:19 AM CDT): Reviewed calorie restriction based on BMR as previously detailed. Reviewed recommendation/goal of >/= 150 minutes/week moderate-intensity aerobic exercise. Asked to keep detailed food diary for at least 1 week and bring to next visit and/or continue tracking on phone. Assessment & Plan (10/02/2021 10:40 AM CHILD CARE CENTRE MANAGER): Reviewed calorie restriction based on BMR as previously detailed. Reviewed recommendation/goal of >/= 150 minutes/week moderate-intensity aerobic exercise. Asked to keep detailed food diary for at least 1 week and bring to next visit and/or continue tracking on phone. Assessment & Plan (06/11/2021 3:03 PM CDT): Reviewed calorie restriction based on BMR as previously detailed. Reviewed recommendation/goal of >/= 150 minutes/week moderate-intensity aerobic exercise. Asked to keep detailed food diary for at least 1 week and bring to next visit and/or continue tracking on phone. Assessment & Plan (11/16/2020 4:19 PM CDT): Recalculated and reviewed calorie restriction based on BMR as previously detailed. Reviewed recommendation/goal of >/= 150 minutes/week moderate-intensity aerobic exercise. Asked to keep detailed food diary for at least 1 week and bring to next visit and/or continue tracking on phone. Assessment & Plan (05/14/2020 9:19 AM CDT): Reviewed calorie restriction based on BMR as previously detailed. Reviewed recommendation/goal of >/= 150 minutes/week moderate-intensity aerobic exercise. Asked to keep detailed food diary for at least 1 week and bring to next visit and/or continue tracking on phone -- encouraged her start tracking again. Assessment & Plan (01/10/2020 5:03 PM CDT): Reviewed calorie restriction based on BMR as previously detailed. Reviewed recommendation/goal of >/= 150 minutes/week moderate-intensity aerobic exercise. Assessment & Plan (11/20/2019 6:34 PM CDT): Recalculated and reviewed calorie restriction based on BMR as previously detailed. Reviewed importance of adequate protein intake of 1-1.2 g/kg IBW/day. Reviewed recommendation/goal of >/= 150 minutes/week moderate-intensity aerobic exercise. Asked to keep detailed food diary for at least 1 week and bring to next visit and/or continue tracking on phone. Assessment & Plan (07/14/2018 11:17 AM CHILD CARE CENTRE MANAGER): Reviewed calorie restriction based on BMR as previously detailed. Reviewed recommendation/goal of >/= 150 minutes/week moderate-intensity aerobic exercise. Asked to keep detailed food diary for at least 1 week and bring to next visit. Assessment & Plan (06/15/2018 9:40 AM CDT): Discussed that weight loss will require calorie deficit. Calculated basal metabolic rate and estimated total energy expenditure; discussed 500-1000 kcal/day deficit to lose 1-2 lb per week. Asked to keep detailed food diary for at least 1 week and bring to next visit. Discussed relatively small, although significant, role of exercise in weight loss; greater importance in weight maintenance. Vitamin D deficiency 06/15/2018 Assessment & Plan (01/20/2022 11:20 AM CDT): Recheck labs after 3 months on weekly 50,000 international units supplement. Assessment & Plan (06/15/2018 9:51 AM CDT): Start 50,000 IU weekly supplement. History of obstructive sleep apnea 06/15/2018 Assessment & Plan (06/15/2018 9:53 AM CDT): Discussed comorbidities associated with sleep apnea, including effects on weight, and stressed importance of adequate treatment if present. Consider repeat sleep study. Malabsorption 11/30/2015 Assessment & Plan (06/15/2018 9:52 AM CDT): Reviewed labs from bariatric surgery. Continue iron supplementation. History of bariatric surgery 11/30/2015 Assessment & Plan (10/02/2021 10:44 AM CHILD CARE CENTRE MANAGER): Routine labs to evaluate for vitamin deficiencies in setting of intestinal malabsorption. Assessment & Plan (11/20/2019 6:35 PM CDT): Reviewed recent notes/labs. Class 3 severe obesity due t o excess calories without serious comorbidity in adult 11/30/2015 Overview (11/20/2019): S/P RYGB Assessment & Plan (01/20/2022 11:21 AM CDT): Obesity is improving with treatment. Diet interventions: as noted. Regular aerobic exercise program discussed. Pharmacotherapy as ordered. Assessment & Plan (10/02/2021 10:41 AM CHILD CARE CENTRE MANAGER): Obesity is improving with treatment. Diet interventions: as noted. Regular aerobic exercise program discussed. Pharmacotherapy as ordered. Assessment & Plan (06/11/2021 3:05 PM CDT): Obesity is unchanged. Diet interventions: as noted. Regular aerobic exercise program discussed. Pharmacotherapy as ordered. Continue phentermine. Assessment & Plan (11/16/2020 4:21 PM CDT): Obesity is improving with treatment. Diet interventions: as noted. Regular aerobic exercise program discussed. Pharmacotherapy as ordered. Assessment & Plan (05/14/2020 9:22 AM CDT): Obesity is unchanged. Diet interventions: as noted. Regular aerobic exercise program discussed. Pharmacotherapy as ordered. Assessment & Plan (01/10/2020 5:05 PM CDT): Obesity is improving with treatment. Diet interventions: as noted. Regular aerobic exercise program discussed. Pharmacotherapy as ordered. Assessment & Plan (11/20/2019 6:41 PM CDT): Obesity is worsening. General weight loss/lifestyle modification strategies discussed (elicit support from others; identify saboteurs; non-food rewards, etc). Diet interventions: as noted. Regular aerobic exercise program discussed. Pharmacotherapy as ordered. Assessment & Plan (07/14/2018 11:20 AM CHILD CARE CENTRE MANAGER): Obesity is unchanged. Behavioral treatment: have recommended counseling. Diet interventions: as noted. Regular aerobic exercise program discussed. Pharmacotherapy as ordered. Assessment & Plan (06/15/2018 9:49 AM CDT): Obesity is worsening. General weight loss/lifestyle modification strategies discussed (elicit support from others; identify saboteurs; non-food rewards, etc). Behavioral treatment: recommend counseling. Diet interventions: low calorie (1000 kCal/d) deficit diet. Informal exercise measures discussed, e.g. taking stairs instead of elevator. Regular aerobic exercise program discussed. Further recommendations pending review of labs, food record. No diagnosis on [place] I 12/14/2012 Morbid obesity 09/16/2012 Intestinal malabsorption Assessment & Plan (10/02/2021 10:44 AM CHILD CARE CENTRE MANAGER): Routine labs to evaluate for vitamin deficiencies in setting of intestinal malabsorption. Social History Tobacco Use Types Packs/Day Years Used Date Smoking Tobacco: Never Smokeless Tobacco: Never Tobacco Cessation:Counseling Given: Not Answered Alcohol Use Standard Drinks/Week Comments No 0 (1 standard drink = 0.6 oz pur e alcohol) AUDIT-C Answer Date Recorded Q1: How often do you have a drink containing alcohol? Never 08/08/2024 Q2: How many drinks containi ng alcohol do you have on a typical day when you are drinking? Patient does not drink Q3: How often do you have si x or more drinks on one occasion? Never 08/08/2024 Personal Safety Answer Date Recorded Have you ever been in or are you currently in a harmful physical or emotional relationship or is someone making you feel afraid or unsafe? Denies 08/15/2024 Comments No Sex and Gender Information Value Date Recorded Sex Assigned at Not on file Legal Sex Female 9:21 AM CHILD CARE CENTRE MANAGER Gender Identity Female 09/19/2019 9:00 PM CHILD CARE CENTRE MANAGER Sexual Orientation Not on file Last Filed Vital Signs Vital Sign Reading Time Taken Comments Blood Pressure 134/82 08/15/2024 8:35 AM CHILD CARE CENTRE MANAGER Pulse 54 08/15/2024 8:35 AM CHILD CARE CENTRE MANAGER Temperature 36.3 C (97.3 F) 08/15/2024 7:10 AM CHILD CARE CENTRE MANAGER Respiratory Rate 13 08/15/2024 8:35 AM CHILD CARE CENTRE MANAGER Oxygen Saturation 100% 08/15/2024 8:35 AM CHILD CARE CENTRE MANAGER Inhaled Oxygen Concentration - - Weight 114.3 kg (252 lb) 08/15/2024 7:17 AM CHILD CARE CENTRE MANAGER Height 170.2 cm (5' 7) 08/15/2024 7:17 AM CHILD CARE CENTRE MANAGER Body Mass Index 39.47 08/15/2024 7:17 AM CHILD CARE CENTRE MANAGER Plan of Treatment Not on file Insurance [facility] [employer] [facility] H[facility]/PPO Address: [phone] [place] [id number] [employer] Advance Directives For more information, please contact: [phone] * Full Code (Latest Code Status on File) Date Activated Date Inactivated Comments 04/29/2024 6:55 AM 04/29/2024 2:22 PM * Full Code Date Activated Date Inactivated Comments 03/15/2024 8:40 PM 03/16/2024 8:00 PM * Full Code Date Activated Date Inactivated Comments 03/07/2024 7:38 AM 03/07/2024 12:50 PM * Full Code Date Activated Date Inactivated Comments 03/07/2024 7:38 AM 03/07/2024 7:38 AM * Full Code Date Activated Date Inactivated Comments 11/16/2019 8:00 AM 11/16/2019 2:13 PM Care Teams Community Resource Consultant Relationship Specialty Start Date End Date Kajal Kessler MD PCP - General Internal Medicine 05/14/20
--- OUTSIDE RECORDS SUMMARY | 2025-02-10 14:32 | XMS_ITS | Clinical Summary ---
Author Organization [facility] Address [facility] [place] [address] Care Team Providers Care Access Services Representative Name Role Phone Kajal Kessler MD Primary Care Provider [phone] Allergies No known active allergies Medications biotin [...] visit. Assessment & Plan (10/02/2021 10:40 AM KNOTTING MACHINE OPERATOR PORTABLE): Labs. Continue low-carb (<150 g/day), low-glycemic diet. [...] (11/14/2019): Added automatically from request for surgery [id number] Assessment & Plan (11/20/2019 6:34 PM CDT): F/U with surgery re possible esophagram/EGD. Vomiting without nausea 11/14/2019 Overview (11/14/2019): Added automatically from request for surgery [id number] Metabolic and nutritional disorder 06/15/2018 Assessment & Plan (11/20/2019 6:36 PM CDT): Reviewed recent labs and discussed A1c 5.9 c/w prediabetes. Discussed insulin resistance including effect on weight and risk for progression to diabetes. Recommended low-carb, low-glycemic diet; choose whole grains and avoid more highly processed carbohydrates. Discussed potential benefits of this w/r/t gut microbiome. Referred to ADA and [facility] websites for additional information on topics including glycemic index/carbohydrate choices, protein sources. Start Metformin 500mg -- take daily for the 1st week, then increase to BID if tolerating. Discussed rationale in setting of insulin resistance. Discussed risks, benefits, alternatives, and potential side effects. Consider GLP-1 RA. Assessment & Plan (07/14/2018 11:19 AM KNOTTING MACHINE OPERATOR PORTABLE): Reviewed repeat labs. Continue low-carb (<150 g/day), [...] w/r/t gut microbiome. Referred to ADA and [place] [employer] websites for additional information on topics including glycemic index/carbohydrate choices, protein sources. Elevated transaminase level 06/15/2018 Assessment & Plan (07/14/2018 11:19 AM KNOTTING MACHINE OPERATOR PORTABLE): Repeat levels improved but remain elevated. Will [...] phone. Assessment & Plan (10/02/2021 10:40 AM KNOTTING MACHINE OPERATOR PORTABLE): Reviewed calorie restriction based on BMR as [...] phone. Assessment & Plan (07/14/2018 11:17 AM KNOTTING MACHINE OPERATOR PORTABLE): Reviewed calorie restriction based on BMR as [...] 11/30/2015 Assessment & Plan (10/02/2021 10:44 AM KNOTTING MACHINE OPERATOR PORTABLE): Routine labs to evaluate for vitamin deficiencies [...] ordered. Assessment & Plan (10/02/2021 10:41 AM KNOTTING MACHINE OPERATOR PORTABLE): Obesity is improving with treatment. Diet interventions: [...] ordered. Assessment & Plan (07/14/2018 11:20 AM KNOTTING MACHINE OPERATOR PORTABLE): Obesity is unchanged. Behavioral treatment: have recommended [...] of labs, food record. No diagnosis on [place] I 12/14/2012 Morbid obesity 09/16/2012 Intestinal malabsorption Assessment & Plan (10/02/2021 10:44 AM KNOTTING MACHINE OPERATOR PORTABLE): Routine labs to evaluate for vitamin deficiencies in setting of intestinal malabsorption. Surgical History Surgery Date Site/Laterality Comments TUNG-EN-Y PROCEDURE TUBAL LIGATION COLONOSCOPY UPPER GASTROINTESTINAL ENDOSCOPY LASIK CHOLECYSTECTOMY ERCP Medical History Medical History Date Comments Morbid obesity (HCC) Intestinal malabsorption Weight loss counseling, encounter for 06/15/2018 Vitamin D deficiency 06/15/2018 JOVON on CPAP Dysphagia GERD (gastroesophageal reflux disease) Cholelithiasis Abdominal pain Family History Medical History Relation Name Comments Hypertension Mother Family history of hypertension - (Added by TW Conv) Prediabetes Mother Family history of diabetes mellitus - (Added by TW Conv) Relation Name Status Comments Mother Social History Tobacco Use Types Packs/Day Years [...] on file Legal Sex Female 9:21 AM KNOTTING MACHINE OPERATOR PORTABLE Gender Identity Female 09/19/2019 9:00 PM KNOTTING MACHINE OPERATOR PORTABLE Sexual Orientation Not on file Obstetrics History Last Filed Vital Signs Vital Sign Reading Time Taken Comments Blood Pressure 134/82 08/15/2024 8:35 AM KNOTTING MACHINE OPERATOR PORTABLE Pulse 54 08/15/2024 8:35 AM KNOTTING MACHINE OPERATOR PORTABLE Temperature 36.3 C (97.3 F) 08/15/2024 7:10 AM KNOTTING MACHINE OPERATOR PORTABLE Respiratory Rate 13 08/15/2024 8:35 AM KNOTTING MACHINE OPERATOR PORTABLE Oxygen Saturation 100% 08/15/2024 8:35 AM KNOTTING MACHINE OPERATOR PORTABLE Inhaled Oxygen Concentration - - Weight 114.3 kg (252 lb) 08/15/2024 7:17 AM KNOTTING MACHINE OPERATOR PORTABLE Height 170.2 cm (5' 7) 08/15/2024 7:17 AM KNOTTING MACHINE OPERATOR PORTABLE Body Mass Index 39.47 08/15/2024 7:17 AM KNOTTING MACHINE OPERATOR PORTABLE Plan of Treatment Health Maintenance Due Date Last Done Comments Cervical Cancer Screening 1974 Colon Cancer Screening-Colonoscopy 1974 Depression Screening 1974 Hepatitis C Screening 1974 Hepatitis B Screening 1992 Regular Well Visit/Exam 18-64 1992 Breast Cancer Screening-Mammogram 09/18/2021 09/18/2020 Zoster Vaccine (1 of 2) 2024 Covid-19 Vaccine (3 - 2023-2 5 season) 2024 06/04/2021, 04/23/2021 Influenza Vaccine (Season Ended) 2025 05/21/2020 DTaP/Tdap/Td Vaccine (2 - Td or Tdap) 02/26/2030 02/27/2020 Pneumococcal vaccine <65 Aged Out No longer eligible based on patient's age to complete this topic Insurance [facility] [employer] Advance Directives For more information, please contact: [phone] * Full Code (Latest Code Status on [...] 8:00 AM 11/16/2019 2:13 PM Care Teams Access Services Representative Relationship Specialty Start Date End Date Kajal Kessler MD PCP - General Internal Medicine 05/14/20
== END 2025-02-10 14:24 | disposition home or self-care (01) ==
LOC: ANHIMG 14:27
DX: Z12.31 Encounter for screening mammogram for malignant neoplasm of breast (principal)
CPT/HCPCS: 77063; 77067